=== PATIENT | male | born 1935 | race Caucasian/White ===

== ENCOUNTER 2018-11-30 13:39 | Inpatient (IN) | payer OTHER ==
[~2018-11-30] VITALS: Ht 177.8 cm; Wt 95.3 kg
[2018-11-30 13:51] VITALS: Ht 177.8 cm; Wt 95.3 kg
--- NOTE | 2018-11-30 14:01 | NUR ---
EKG IN TRIAGE.
--- NOTE | 2018-11-30 14:13 | NUR ---
PT TAKEN TO BED 7 VIA WHEELCHAIR FROM TRIAGE. PT AAOX4, RESPIRATONS EVEN AND UNLABORED, NO S/S OF DISTRESS NOTED. PT REPORTS DIZZINESS X 4 DAYS AND 4 FALLS IN THE LAST 4 DAYS. PT DENIES LOC OR HITTING HIS HEAD.
--- NOTE | 2018-11-30 14:18 | NUR ---
PT REPORTS PAIN FROM FALLING TO THE RIGHT UPPER ARM, PT RATES PAIN A 3/10.
--- NOTE | 2018-11-30 14:52 | NUR ---
MSE COMPLETED BY DR. PABLO.
--- NOTE | 2018-11-30 15:15 | NUR ---
PT SITTING UP IN BED, NO S/S OF DISTRESS NOTED.
[2018-11-30 15:16] LABS: CALCIUM 9.6 mg/dL (8.5-10.1); CARBON DIOXIDE 32.4 mmol/L (21-32); CHLORIDE SERUM 101 mmol/L (98-107); CREATININE SERUM 1.2 mg/dL (0.7-1.3); GLUCOSE SERUM 125 mg/dL (74-106); POTASSIUM SERUM 5.3 mmol/L (3.5-5.1); SODIUM SERUM 137 mmol/L (136-145)
[2018-11-30 15:20] LABS: ALBUMIN 3.6 g/dL (3.4-5.0); ALKALINE PHOSPHATASE 62 U/L (46-116); ALT/SGPT 21 U/L (16-63); AST/SGOT 26 U/L (15-37); BILIRUBIN TOTAL 0.6 mg/dL (0.20-1.00); CHOLESTEROL 160 mg/dL (<200); TOTAL PROTEIN, SERUM 8.1 g/dL (6.4-8.2)
[2018-11-30 15:24] LABS: BASOPHIL % 0.3 % (0-2); PLATELET COUNT 155 x10^3mcL (130-400); RED CELL DISTRIBUTION WIDTH 14.5 % (11.5-14.5)
--- NOTE | 2018-11-30 16:40 | NUR ---
PT SITTING UP IN BED, CUP OF WATER GIVEN TO PT.
[2018-11-30 17:04] LABS: AMPHETAMINE QUAL UR NONE DETECTED (See below)
[2018-11-30] MEDS ORDERED: SIMVASTATIN20 M1 (18:28)
[2018-11-30] MEDS ORDERED: METFORMIN HYDR500 M1 PO (18:28)
[2018-11-30] MEDS ORDERED: HCTZ/TRIAMTEREN1 CA1 (18:29)
[2018-11-30] MEDS ORDERED: ASPIR 8181 MG (18:29)
[2018-11-30] MEDS ORDERED: ZESTRIL20 MG (18:29)
[2018-11-30] MEDS ORDERED: VITAMIN C500 M6 PO (18:30)
[2018-11-30] MEDS ORDERED: VITAMIN B121000 MCG PO (18:30)
--- NOTE | 2018-11-30 19:05 | NUR ---
REPORT RECIEVED FROM MARIA GUADALUPE KEN. PT AWAKE AND ALERT, SITTING UP IN BED, 2 BED RAILS UP, BED IN LOW AND LOCKED PSOITION, CALL LIGHT W/IN REACH. NAD NOTED.
--- NOTE | 2018-11-30 19:53 | NUR ---
REPORT GIVEN TO APRIL KEN
--- NOTE | 2018-11-30 20:35 | NUR ---
AOX4. TELE #34, SR WITH 1ST AVB. LUNGS DIMINISHED ON NC @ 2L WITH PRODUCTIVE COUGH. PULSES PALPABLE. NO EDEMA. BOWEL SOUNDS ACTIVE. VOIDS FREELY. AMBULATES WITH CANE. DRY SCABS NOTED TO R HAND AND L FA. C/O R SHOULDER PAIN 01/14. IV TO LAC, PATENT AND INFUSING. ADMITTED FOR MULTIPLE FALLS AND DIZZINESS. C/O MILD DIZZINESS AT THIS TIME. ORIENTED TO ROOM. BED IN LOWEST POSITION, 2 SIDE RAILS UP, CALL LIGHT IN REACH. INSTRUCTED TO CALL FOR ASSISTANCE.
[2018-11-30 21:50] VITALS: BP 104/49
[2018-11-30 22:35] VITALS: BP 104/49
--- NOTE | 2018-12-01 00:21 | NUR ---
RESTING IN BED WITH EYES CLOSED. BREATHING EVEN AND UNLABORED ON NC @ 2L. NO ACUTE DISTRESS NOTED. WILL CONTINUE TO MONITOR.
[2018-12-01 05:51] VITALS: BP 98/56
--- NOTE | 2018-12-01 05:57 | NUR ---
PT C/O INCREASED R SHOULDER PAIN/SORENESS 03/16. MEDICATED WITH MORPHINE PER EMAR. WOUND PICTURES TAKEN OF R HAND AND L FA, IN CHART. NO C/O DIZZINESS AT THIS TIME. WILL ENDORSE TO ONCOMING RN.
[2018-12-01 06:33] LABS: T4(THYROXINE) 6.1 ug/dL (4.7-13.3)
[2018-12-01 06:58] LABS: CALCIUM 8.5 mg/dL (8.5-10.1); CARBON DIOXIDE 27.2 mmol/L (21-32); CHLORIDE SERUM 102 mmol/L (98-107); CREATININE SERUM 0.9 mg/dL (0.7-1.3); GLUCOSE SERUM 90 mg/dL (74-106); POTASSIUM SERUM 4.1 mmol/L (3.5-5.1); SODIUM SERUM 138 mmol/L (136-145)
[2018-12-01 07:16] LABS: BASOPHIL % 0.2 % (0-2); PLATELET COUNT 142 x10^3mcL (130-400)
--- NOTE | 2018-12-01 07:29 | NUR ---
RECEIVED PT FROM SHIFT NURSE A/OX4 RESTING IN BED. APPEARS IN NO ACUTE DISTRESS. DENIES DIZZINESS AT THIS TIME. RESP EVEN AND UNLABORED ON 2L 02 NC. IV INTACT AND INFUSING WELL. FALL PRECAUTIONS IN PLACE. BED IN LOW POSITION. CALL LIGHT WITHIN REACH. WILL CONTINUE TO MONITOR.
[2018-12-01 07:33] LABS: RED CELL DISTRIBUTION WIDTH 14.6 % (11.5-14.5)
[2018-12-01 09:12] VITALS: BP 96/46
[2018-12-01 09:44] LABS: ERYTHROCYTE SED RATE 14 mm/hr (0-20)
--- NOTE | 2018-12-01 10:50 | NUR ---
PT ASLEEP IN BED BUT AROUSABLE. NO ACUTE DISTRESS NOTED. BED IN LOW POSITION. CALL LIGHT WITHIN REACH. WILL CONTINUE TO MONITOR.
[2018-12-01 13:01] VITALS: BP 103/67
--- NOTE | 2018-12-01 13:15 | NUR ---
PT SITTING IN BED EATING LUNCH. NO ACUTE DISTRESS NOTED. BED IN LOW POSITION. CALL LIGHT WITHIN REACH. WILL CONTINUE TO MONITOR.
[2018-12-01 17:40] VITALS: BP 92/50
--- NOTE | 2018-12-01 18:40 | NUR ---
PT SITTING UP IN BED WATCHING TV. NO C/O OF DIZZINESS. FALL PRECAUTIONS IN PLACE. BED IN LOW POSITION. CALL LIGHT WITHIN REACH. IV INTACT AND WILL BE ENDORSED.
--- NOTE | 2018-12-01 19:36 | NUR ---
PT. AWAKE, ALERT, ORIENTED X4. DENIES HEADACHE OR DIZZINESS. SPEECH CLEAR, CONVERSATION APPROPRIATE. BREATH SOUNDS CLEAR THROUGHOUT LUNG BUENO, DIMINISHED AT THE BASES. PT. ON 2L/NC. NO SOB NOTED. ABD. SOFT AND ROUND, BOWEL SOUNDS ACTIVE. PEDAL PULSES MODERATE BLE. NO EDEMA NOTED. PT. DENIES ANY CHESTPAIN. ON TELE 34, SR W/ FIRST DEGREE AVB. IVF 1/2 NS AT 100CC/HR. INFORMED BY RADIOTELEGRAPHER THAT PT. HAS HIS OWN CONTAINER OF MEDS AT BEDSIDE AND PT. STATED THAT HE WILL TAKE HIS OWN MEDS TONIGHT TO THE RADIOTELEGRAPHER. I SPOKE WITH PT. REGARDING HIS OWN HOME MEDICATION. PT. STATED THAT HE HAS NOT RECEIVED ANY OF THE MEDICATIONS THAT HE USUALLY TAKES AT HOME. HE IS CONCERNED THAT HE HAS HTN AND DM MEDS. PT. ALSO STATED THAT HE TOOK SOME OF HIS OWM MEDICATIONS EARLIER TODAY AND ADMITTED THAT THE NURSE FROM DAY SHIFT WAS NOT AWARE. PT. DISCOURAGED FROM TAKING HIS OWN MEDS. STATED THAT HE WILL NOT TAKE ANY OF HIS MEDS. DR. FALL PAGED AT THIS TIME.
--- NOTE | 2018-12-01 19:57 | NUR ---
SPOKE WITH DR. FALL REGARDING PT.'S CONCERNS. MED REC LIST REVIEWED W/ DR. FALL, PER DOCTOR ANTON FALL, MEDICATIONS TO BE CONTINUED.
[2018-12-01 20:39] VITALS: BP 94/51
--- NOTE | 2018-12-02 00:29 | NUR ---
PT. SLEEPING, CALL LIGHT WITHIN REACH. NO COMPLAINTS THUS FAR.
[2018-12-02 05:26] VITALS: BP 102/57
[2018-12-02 06:04] LABS: BASOPHIL % 0.1 % (0-2); PLATELET COUNT 137 x10^3mcL (130-400)
[2018-12-02 06:21] LABS: RED CELL DISTRIBUTION WIDTH 14.6 % (11.5-14.5)
--- NOTE | 2018-12-02 06:26 | NUR ---
PT. ESCORTED TO BATHROOM AND BACK TO BED. PT. MUMBLING AND STATING OUT LOUD, WHY DOES HE HAVE TO BE HERE, THAT HE'S TIRED OF BEING HERE. STATED THAT HE WAS SUPPOSE TO BE DISCHRGED ALREADY. PT. SAYING THAT HE SHOULD TAKE HIS MONITOR OFF TOO, MAKING STATMENT BASED ON EVENTS THAT OCCURED WITH PT. IN BED A. PT. ENCOURAGED TO WAIT UNTIL HIS DOCTOR ROUNDS. WILL CONTINUE TO MONITOR. WILL ENDORSE PT CARE TO INCOMING NURSE.
--- NOTE | 2018-12-02 07:15 | NUR ---
PT VOICING HE WILL LEAVE AMA, STATES THE PRESSURE TESTER CLEARED HIM YESTERDAY AND THAT WHY HE IS STILL HERE. PROCESS WAS EXPLAINED, ADVISED PT TO WAIT FOR TO COME FOR PROPER DISCHARGE. PT STATES HE HAD CALLED HIS ROOMMATE AND THAT SHE IS ON HER WAY.
--- NOTE | 2018-12-02 09:00 | NUR ---
PT REPORTS THAT HIS ROOMMATE IS HERE AND THAT HE WILL LEAVE AMA. "I DO NOT CARE IF I FALL AGAIN, I WANT TO LEAVE, I HAVE NOT HAD A CIGARETTE IN 3 DAYS AND I AM A SMOKER" PT WILL NOT WAIT FOR , RISKS OF LEAVING AMA GIVEN AND EXPLAINED. PT STATES HE IS LEAVING. TELE BOX REMOVED, IV CATHETER DC'D CATHETER INTACT. PT ESCORTED OUT OF UNIT SAFELY.
--- NOTE | 2018-12-02 10:56 | NUR ---
UNABLE TO SEE PATIENT FOR P.T., SIGNED AMA IN THE MORNING.
[2018-12-02 10:59] LABS: RAPID PLASMA REAGIN Non Reactive (Non Reactive); RHEUMATOID ARTHRITIS FACTOR <10.0 IU/mL (0.0-13.9)
== END 2018-12-02 08:59 | disposition left against medical advice (07) | DRG 309 ==
LOC: ED 13:39 → DU 17:47
PROVIDERS: Specialist; ADMIT Internal Medicine
DX: R00.0 Tachycardia, unspecified (principal); N17.9 Acute kidney failure, unspecified; E86.0 Dehydration; E87.5 Hyperkalemia; I34.0 Nonrheumatic mitral (valve) insufficiency; E11.65 Type 2 diabetes mellitus with hyperglycemia; I10 Essential (primary) hypertension; E78.5 Hyperlipidemia, unspecified; M19.90 Unspecified osteoarthritis, unspecified site; Z79.4 Long term (current) use of insulin; Z68.30 Body mass index [BMI] 30.0-30.9, adult
CPT/HCPCS: 82962; 86431; G0480; J2270; J7030; Q0092

== ENCOUNTER 2019-05-12 11:27 | Inpatient (IN) | payer OTHER ==
[2019-05-12] VITALS (8 sets, daily range): BP systolic 59–98; BP diastolic 39–56; Ht 177.8 cm; Wt 90.7 kg
[~2019-05-12] VITALS: Ht 177.8 cm; Wt 90.7 kg
[~2019-05-12 11:27] MED LIST: ASPIR 8181 MG; HCTZ/TRIAMTEREN1 CA1; METFORMIN HYDR500 M1 PO; SIMVASTATIN20 M1; VITAMIN B121000 MCG PO; VITAMIN C500 M6 PO; ZESTRIL20 MG
--- NOTE | 2019-05-12 11:55 | NUR ---
PT WHEELD TO BED T2B WITH FAMILY AT BEDSIDE. PT BROUGHT IN FOR LLE REDNESS SWELLING POSSIBLE BUG BITE, GETTING WORSE. HOT TO TOUCH NO DRAINAGE NOTED AT THIS TIME. PER PT IT HURTS TO WALK. PT GOWNED AWAITING MD ESPINO AND ORDERS WILL MONITOR
--- NOTE | 2019-05-12 12:49 | NUR ---
LAB AT BEDSIDE FOR BLOOD DRAW
[2019-05-12 12:58] LABS: BASOPHIL % 0.1 % (0-2); PLATELET COUNT 160 x10^3mcL (130-400)
--- NOTE | 2019-05-12 12:59 | NUR ---
PORTABLE CXR AT BEDSIDE
[2019-05-12 13:00] LABS: RED CELL DISTRIBUTION WIDTH 15.5 % (11.5-14.5)
--- NOTE | 2019-05-12 13:18 | NUR ---
LOW BP READING WILL INFORM DR SEBASTIAN FOR FURTHER ORDERS
[2019-05-12 13:21] LABS: ALKALINE PHOSPHATASE 72 U/L (46-116); ALT/SGPT 25 U/L (16-63); AST/SGOT 24 U/L (15-37); BILIRUBIN TOTAL 0.7 mg/dL (0.20-1.00); CALCIUM 12.2 mg/dL (8.5-10.1); CARBON DIOXIDE 26.3 mmol/L (21-32); CHLORIDE SERUM 101 mmol/L (98-107); CREATININE SERUM 3.9 mg/dL (0.7-1.3); GLUCOSE SERUM 119 mg/dL (74-106); POTASSIUM SERUM 5.4 mmol/L (3.5-5.1); SODIUM SERUM 137 mmol/L (136-145); TOTAL PROTEIN, SERUM 6.3 g/dL (6.4-8.2)
[2019-05-12 14:13] LABS: C REACTIVE PROTEIN 31.4 mg/dL (<=0.9)
--- NOTE | 2019-05-12 14:27 | NUR ---
REPORT GIVEN TO ASSET PROTECTION OFFICER. PT TO CT AT THIS TIME. AAOX4 NO DISTRESS.
--- NOTE | 2019-05-12 14:50 | NUR ---
LEVOPHED INFUSION STARTED AT 10MCG/KG/MIN AT THIS TIME
--- NOTE | 2019-05-12 15:04 | NUR ---
LEVOPHED INFUSION AT 15MCG/KG/MIN AT THIS TIME. INFUSION LINE CHANGED TO CENTRAL LINE AT R EJ AT THIS TIME.
--- NOTE | 2019-05-12 15:19 | NUR ---
LEVOPHED INFUSIN AT 20MCG/MIN AT THIS TIME. BP 78/42
--- NOTE | 2019-05-12 15:28 | NUR ---
LEVOPHED INFUSION TO 25MCG/MIN AT THIS TIME BP 75/43
--- NOTE | 2019-05-12 15:30 | NUR ---
PT TO ICU AT THIS TIME WITH EUGENIE RN AND JANELLE EMT VIA RUSSELL ON PORTABLE CM LEVOPOHED INFUSION IN PROGRESS. IV SITES PATENT PT IN NO DISTRESS AAOX4 DENIES PAIN. FILE SYSTEM INSTALLER RESUMING CARE OF PT.
--- NOTE | 2019-05-12 15:49 | NUR ---
RECIEVED PATIENT FROM ED AT 1534 VIA GURNEY ATTACHED TO CRIME PREVENTION POLICE OFFICER ACCOMPANIED BY NURSE. PATIENT TRANSFERRED FROM [facility] TO ICU BED 4 WITH MAX ASSIST. VS UPON ARRIVAL INCLUDE: TEMP 97.4 F, NIBP 73/44, MAP 56, HR 90, RR 14, 02 SAT 83% ON 2L NC AND PATIENT DENIES PAIN AT THIS TIME. PATIENT CURRENLTY ON LEVOPHED DRIP, WHICH WAS TITRATED UP FROM 20 TO 30 MCG/MIN. EDEMA, ERYTHEMA AND A SMALL OPEN WOUND NOTED TO LEFT THIGH AREA, PHOTO TOOKEN AND PLACED IN CHART, SITE IS MONOGRAM MAKER. IV NOTED TO RAC AND LAC, BOTH IV'S FLUSH WELL WITH NO SIGNS OF INFILTRATION NOTED. RIJ TLC IN PLACE WITH ALL PORTS FLUSHING WELL AND DRESSING C/D/I. PATIENT IS A/O X4. ABLE TO FOLLOW COMMANDS AND MAKE NEEDS KNOWN. BLUISH DISCOLORATION NOTED TO FACE. OR TEAM ALSO AT BEDSIDE PREPARING PATIENT FOR EMERGENT SURGERY. BED TO LOWEST POSITION, SIDE RAILS UP X3, CALL LIGHT WITHIN REACH.
--- NOTE | 2019-05-12 16:05 | NUR ---
NIBP 8038, MAP 48. LEVOPHED DRIP REMAINS INFUSING AT MAX RATE OF 30 MCG/MIN. HARRIS-SYENPHRINE DRIP STARTED AT 125 MCG/MIN. WILL CONTINUE TO MONITOR.
--- NOTE | 2019-05-12 16:17 | NUR ---
NIBP 85/46 MAP 59, HARRIS-SYNEPHERINE TITRATED TO MAX 300 MCG/MIN.
--- NOTE | 2019-05-12 16:26 | NUR ---
PATIENT LEFT UNIT TO OR VIA BED ATTACHED TO APPLE PEELER OPERATOR ACCOMPANIED BY OR TEAM.
--- NOTE | 2019-05-12 18:21 | NUR ---
PATIENT BACK FROM OR AT 1750 VIA BED ATTACHED TO GUIDE VISITOR ACCOMPANIED BY NURSE S/P I&D TO LEFT THIGH AREA FOR NECROTIZING FASCITIS. PATIENT FOUND TO HAVE RUNS OF V-TACH AND IS ALSO DESATURATING IN THE 70'S. DR. ZENDEJAS CALLED AND PROVIDED UPDATES. ORDERS GIVEN TO BOLUS 2 L NS WIDE OPEN AND GIVE SOLU-CORTEF 100 MG IVP ONCE. SOLU-CORTEF GIVEN AT 1810 (SEE EMAR). TWO LITERS OF NS INFUSING AT THIS TIME WIDE OPEN. BEDSIDE BLOOD SUGAR DONE AT 1815 WHICH WAS 179. PATIENT REMAINS INTUBATED, RT LEONID RUNNING ABG RESULTS. TRACEY, CHARGE NURSE AT BEDSIDE BAGGING THE PATIENT. THE RIJ TLC "FELL OUT" ACCORDING TO THE OR NURSE AND A NEW LIJ TLC WAS INSERTED IN THE OR, RECIEVED AN ORDER FOR OKAY TO USE LIJ TLC BY DR. KARAN ZENDEJAS IS ON HER WAY. WILL CONTINUE TO MONITOR.
--- NOTE | 2019-05-12 18:29 | NUR ---
JAYNE FROM OR BROUGHT PATIENT'S DENTURES TO BEDSIDE.
--- NOTE | 2019-05-12 19:10 | NUR ---
INCAPACITATED CONSENT FORM SIGNED BY DR. ZENDEJAS FOR CENTRAL LINE PLACEMENT AT THIS TIME.
--- NOTE | 2019-05-12 19:10 | NUR ---
16 TELUGU PEREZ CATH INSERTED VIA STERILE TECHNIQUE. YELLOW URINE DRAINING VIA GRAVITY. WILL CONTINUE TO MONITOR.
--- NOTE | 2019-05-12 19:12 | NUR ---
DR. ZENDEJAS, OCCUPATIONAL REHABILITATION AIDE ROSIBEL, AND MYSELF AT BEDSIDE FOR CENTRAL LINE PLACEMENT. TIME OUT PERFORMED AT THIS TIME FOR VERIFICATION. ALL PARTIES IN AGREEMENT.
[2019-05-12 19:20] LABS: BASOPHIL % 1.6 % (0-2); PLATELET COUNT 167 x10^3mcL (130-400); RED CELL DISTRIBUTION WIDTH 15.8 % (11.5-14.5)
--- NOTE | 2019-05-12 19:20 | NUR ---
RECEIVED REPORT FROM TAMY KEN. ASSUMING ALL CARE
--- NOTE | 2019-05-12 19:25 | NUR ---
RIGHT FEMORAL CENTRAL LINE PLACED AT THIS TIME BY DR. ZENDEJAS ON THE FIRST ATTEMPT. PER PIETRO PERAZA TO USE CENTRAL LINE.
[2019-05-12 19:26] LABS: CALCIUM 9.3 mg/dL (8.5-10.1); CARBON DIOXIDE 21.7 mmol/L (21-32); CHLORIDE SERUM 105 mmol/L (98-107); CREATININE SERUM 3.6 mg/dL (0.7-1.3); GLUCOSE SERUM 230 mg/dL (74-106); POTASSIUM SERUM 5.4 mmol/L (3.5-5.1); SODIUM SERUM 137 mmol/L (136-145)
--- NOTE | 2019-05-12 19:30 | NUR ---
PT ATTEMPTING TO REACH FOR ETT/LINES. EDUCATED ON IMPORTANCE OF NOT PULLING ON EQUIPMENT. NO INDICATION OF LEARNING NOTED. PT PLACED ON BILAT SOFT WRIST RESTRAINT FOR PT SAFETY. GOOD CIRCULATION NOTED.
--- NOTE | 2019-05-12 19:36 | NUR ---
DR ZENDEJAS AT BEDSIDE STS TO GIVE 1 LITER OF LR BOLUS. VERBAL ORDER NOTED AND CARRIED OUT.
--- NOTE | 2019-05-12 19:37 | NUR ---
CRITICAL LAB VALUE LACTIC ACID AND BUN REPORTED TO DR ZENDEJAS, NO NEW ORDERS GIVEN.
--- NOTE | 2019-05-12 19:40 | NUR ---
DR. SCHMITT AT BEDSIDE SPEAKING WITH PT'S FAMILY AT THIS TIME IN REGARDS TO POC, OVERALL POOR PROGNOSIS, AND CODE STATUS. PT TO REMAIN FULL CODE AT THIS TIME.
--- NOTE | 2019-05-12 19:45 | NUR ---
RECEIVED PT LAYING IN BED. PT IS INTUBATED AND ON NO SEDATION. PT RESPONDS TO PAINFUL STIMULI, FACIAL GRIMACING NOTED. PUPILS WITH SLUGGISH RESPONSE TO LIGHT, 2 MM BILAT. PT DOES NOT FOLLOW COMMANDS. GAG REFLEX PRESENT. 8.0 ETT INTACT/SECURED, 24 CM @ LL. LIJ CVC IN PLACE, ALL PORTS PATENT. EENT FREE OF DISCHARGE. TRAHCEA MIDLINE. ORAL MUCOSA PINK AND MOIST. PT ON VENT, VENT SETTINGS: PCV/AC MODE, RATE 16, FIO2 100%, PRESSURE 18, PEEP 5. RHONCHI NOTED TO BUL AND DIMIN LUNG SOUNDS NOTED TO BLL. AGONAL BREATHING NOTED. USE OF ACCESSORY MUSCLE NOTED. BARREL CHEST NOTED. S1/S2 HEART SOUNDS AUSCULTATED. PT CONNECTED TO FULL CANVAS BASTER. RIGHT RADIAL ARTERIAL LINE IN PLACE. HR 122, ART BP 80/45 MAP 57. LEVOPHED GTT INFUSING @ 30 MCG/MIN, NEOSYNEPHRINE GTT @ 300 MCG/MIN, VASOPRESSING GTT @ 0.04 UNITS/MIN. WEAK PULSES X4 EXTREMITIES. SKIN IS COOL AND DRY, +1 PITTING EDEMA NOTED TO BLE. FACE APPEARS TO BE CYANOTIC. PT'S SKIN ASHEN IN COLOR. CAP REFILL > 3 SECS. LAC AND RAC IV IN PLACE WITH NO S/S OF INFITLRATION NOTED. RIGHT FEMORAL CVC IN PLACE WITH ALL PORTS PATENT. LR BOLUS INFUSING @ THIS TIME. GENERALIZED WEAKNESS. PT ON BEDREST. NO JOINT SWELLING/DEFORMITY NOTED. PT PLACED ON BILAT SOFT WRIST RESTRAINT FOR PT SAFETY, GOOD CIRCULATION NOTED. PT REACHING TOWARDS LINES/TUBES. PT IS NPO AT THIS TIME. ABD IS SOFT, ROUND, NONTENDER TO PALPATION. BOWEL SOUNDS ACTIVE X4 QUADRANTS. NO BM NOTED. PEREZ IS INTACT/SECURED, DRAINING VIA GRAVITY WITH SHIRLEY COLORED URINE. POOR URINE OUTPUT. NO SCROTAL EDEMA NOTED. LEFT UPPER THIGH NOTED TO BE SWOLLEN, WRAPPED IN KERLIX WITH DRESSING CDI S/P I&D. SCATTERED ECCHYMOSIS NOTED TO BUE. PT ON TURN SCHED Q2H. BED IN LOW POSITION. CALL LIGHT IN REACH. WILL CONT TO MONITOR
--- NOTE | 2019-05-12 20:13 | NUR ---
RECEIVED CRITICAL LAB RESULT: TROPONIN 0.224. TROPONIN TRENDING DOWN. WILL CONT TO MONITOR.
[2019-05-12 20:19] LABS: MAGNESIUM 2.4 mg/dL (1.8-2.4); PHOSPHOROUS 6.2 mg/dL (2.5-4.9)
--- NOTE | 2019-05-12 20:23 | NUR ---
AMIODARONE GTT INITIATED AT THIS TIME @ 1 MG/MIN PER PROTOCOL. WILL CONT TO MONITOR.
--- NOTE | 2019-05-12 21:00 | NUR ---
DR. GROSS AT BEDSIDE. UPDATED ON PT'S STATUS. PER DR. GROSS, CONTINUE WITH CURRENT ANTIBIOTICS.
--- NOTE | 2019-05-12 22:22 | NUR ---
PER [facility], PT CLEARED AND WILL NOT BE A CANDIDATE. CASE # CC [id number]
--- NOTE | 2019-05-12 22:30 | NUR ---
RESTRAINTS REMOVED AT THIS TIME
--- NOTE | 2019-05-12 22:32 | NUR ---
AMIODARONE TURNED OFF AT THIS TIME. PT'S ARTERIAL MAP IN MID 50'S, MAXED ON 3 VASOPRESSORS. PT'S HR BETWEEN 70'-80'S.
--- NOTE | 2019-05-12 23:30 | NUR ---
WARMING BLANKET INITIATED AT THIS TIME FOR RECTAL TEMP OF 96.3
--- NOTE | 2019-05-13 00:02 | NUR ---
RT AT BEDSIDE FOR BREATHING TREATMENT
--- NOTE | 2019-05-13 00:21 | NUR ---
SPOKE TO PT'S DAUGHTER ELISHA VIA TELEPHONE. UPDATED ON PT'S CURRENT STATUS AND POOR PROGNOSIS. MADE AWARE PT IS MAXED ON 3 VASOPRESSORS AND PT'S CURRENT O2 SATURATION IS BETWEEN 20-30'S ON 100% FIO2. PER ELISHA, HER SON LAYLA SHOULD BE ARRIVING SHORTLY. HE WILL BE GOING TO THE PT'S HOME TO GET HIS WILL. PT TO REMAIN FULL CODE UNTIL THEY ARE ABLE TO VIEW HIS WILL. ALL QUESTIONS/CONCERNS ADDRESSED AT THIS TIME.
[2019-05-13 01:40] VITALS: BP 46/29
--- NOTE | 2019-05-13 01:45 | NUR ---
PT'S GRANDSON, LAYLA GOODSON, AT BEDSIDE. UPDATED ON PT'S STATUS. ALL QUESTIONS/CONCERNS ADDRESSED AT THIS TIME. MADE AWARE OF PT'S POOR PROGNOSIS. PER LAYLA, PT TO BE MADE DNR. DR. FALL MADE AWARE. ORDER NOTED AND CARRIED OUT. FAMILY REMAINS AT BEDSIDE.
[2019-05-13 03:13] VITALS: BP 49/34
--- NOTE | 2019-05-13 03:37 | NUR ---
PT NOTED ASYSTOLE ON THE TECHNICAL SYSTEMS ARCHITECT. PULSE OX NOT READING. NO PULSE BY DOPPLER PRESENT. TIME OF CALLED BY EDMOND KEN @ 03:37. FAMILY AT BEDSIDE.
--- NOTE | 2019-05-13 04:45 | NUR ---
NOTIFIED [facility] OF PT'S . SPOKE TO DEPUTY BAKARI HAN VIA TELEPHONE. PER THE DEPUTY, EQUITY RESEARCH ANALYST'S OFFICE RELEASES THE BODY TO [facility]. [facility]
== END 2019-05-13 03:37 | disposition expired | DRG 853 ==
LOC: ED 11:27 → IC 13:57
PROVIDERS: Internal Medicine; Student in an Organized Health Care Education/Training Program; Surgery; ADMIT Internal Medicine
PROC: 06HM33Z Insertion of Infusion Device into Right Femoral Vein, Percutaneous Approach (ICD-10-PCS; 2019-05-12)
PROC: 05HN33Z Insertion of Infusion Device into Left Internal Jugular Vein, Percutaneous Approach (ICD-10-PCS; 2019-05-12)
PROC: 0JBM0ZZ Excision of Left Upper Leg Subcutaneous Tissue and Fascia, Open Approach (ICD-10-PCS; principal; 2019-05-12 16:00)
DX: A41.9 Sepsis, unspecified organism (principal); R65.21 Severe sepsis with septic shock; M72.6 Necrotizing fasciitis; J96.01 Acute respiratory failure with hypoxia; N17.0 Acute kidney failure with tubular necrosis; L02.416 Cutaneous abscess of left lower limb; E87.2 Acidosis; E87.5 Hyperkalemia; I34.0 Nonrheumatic mitral (valve) insufficiency; I48.91 Unspecified atrial fibrillation; I10 Essential (primary) hypertension; E11.9 Type 2 diabetes mellitus without complications; J44.9 Chronic obstructive pulmonary disease, unspecified; Z79.82 Long term (current) use of aspirin; Z79.84 Long term (current) use of oral hypoglycemic drugs; Z68.27 Body mass index [BMI] 27.0-27.9, adult; Z66 Do not resuscitate
CPT/HCPCS: 11043; 36558 ×2; C1751; 36556; 82962; A4628; G0378; J0282; J1720; J2370; J2543; J2704; J3010; J3370; J3490; J7030; J7060; J7120; J7620; P9047; Q0092; Q9967